=== PATIENT | male | born 2000 | race Caucasian/White ===

== ENCOUNTER 2020-02-08 21:59 | Emergency (ER) | payer BC, SELFPAY ==
[2020-02-08 22:09] VITALS: BP 154/91; PULSE 100; RESP 15; TEMP 36.7; O2SAT 94; BMI 44.9
[2020-02-08 22:33] VITALS: BP 143/82; PULSE 105; RESP 18; O2SAT 96
--- NOTE | 2020-02-08 22:34 | HMH.EDURI ---
ED Disposition Clinical Impression: Diarrhea Qualifiers: Diarrhea type: unspecified type Qualified Code(s): R19.7 - Diarrhea, unspecified Disposition: Home, Self-Care Condition on Discharge: Good Instructions: DI for Acute Bronchitis, DI for Diarrhea and Traveler's Diarrhea -- Adult Additional Instructions: call pcp for follow up Referrals: Provider,Referral, [Primary Care Provider] - - Critical Care Critical Care Time: No Attestation: On 02/08/20, the high probability of a clinically significant, sudden or life threatening deterioration of the following system(s) required my full and direct attention, intervention and personal management. The time I documented below is in addition to time spent performing reported procedures but includes the following listed in this critical care notation. Medical Decision Making - Medical Records Medical records reviewed: Yes: I reviewed the patient's medical records. - Jeremy Inquiry Pt receiving controlled substance: No Vital Signs: 02/08/20 22:09 02/08/20 22:33 Temperature 98.0 F Temperature Source Oral Pulse Rate [Right Brachial] 100 H 105 H Respiratory Rate 15 18 Blood Pressure [Right Arm] 154/91 H 143/82 H Blood Pressure Mean [Right Arm] 112 102 Blood Pressure Source [Right Arm] Automatic Cuff Blood Pressure Position [Right Arm] Sitting 02 Sat by Pulse Oximetry 94 L 96 Oxygen Delivery Method Room Air Room Air Orders (Tests/Meds): ORDERS Category Date Time Status SARS-CoV-2, GILBERTO Stat Lab 02/08/20 22:25 Received URI/Sore Throat HPI - General Chief Complaint: Upper Respiratory Infection Stated Complaint: Vomiting and diarrhea Time Seen by Provider: 02/08/20 22:15 Mode of Arrival: Ambulatory Source of Information: Patient, Medical Record Limitations: No Limitations Description of Symptoms (Recalled from ER Triage Doc. by RN): PATIENT REPORTS HE WANTS TO BE TESTED FOR COVID-19. PATIENT REPORTS HE HAD NO SYMPTOMS JUST WANTED TO BE ON HE SAFE SIDE BECAUSE HE HAS A 4 MONTH OLD AT HOME AND HIS MOM WANTED HIM TO. - History of Present Illness HPI Narrative: pt wants covid test and unclear as to whether he has any sx or exposure - gave conflicting hx to rn and myself - pt reported that had occ diarrhea over the last few days - no cough or resp sx - MD Complaint: other (possible diarrhea ) Onset (ago): day(s) Duration: intermittent Severity: mild Able to tolerate fluids by mouth: Yes Context: other (no known direct contacts ) Associated symptoms: denies other symptoms Treatments prior to arrival: none - Related Data Previous Rx's Medication Instructions Recorded Ibuprofen [Ibuprofen 600mg 600 mg PO Q6HP PRN #30 tab 07/26/19 Tablet] Allergies Allergy/AdvReac Type Severity Reaction Status Date / Time No Known Allergies Allergy Verified 02/08/20 22:33 [facility] History - Hepatitis A Screen Drug use history?: No High risk sexual behaviors?: No History of sexually transmitted infection?: No Currently employed?: No Childcare worker?: No Do you have indoor plumbing?: Yes Do you have electricity?: Yes Attestation statement:: This patient has been screened for Hepatitis A risk factors. I have reviewed the patient's past medical history: Yes Medical History: Denies:: Diabetes Mellitus Type 1, Diabetes Mellitus Type 2 - Social History Smoking Status: Current every day smoker Tobacco Type: cigarettes # Packs/Day (cigarettes): 1 Alcohol Intake: never Occupational Status: unemployed ROS Obtained: Yes All systems reviewed & no additional complaints - Constitutional Constitutional: Denies fever(s) - Eyes Eyes: Denies change in vision - ENT Ears, Nose, Mouth, and Throat: Denies sore throat - Cardiovascular Cardiovascular: Denies chest pain - Respiratory Respiratory: No cough - Gastrointestinal Gastrointestingal: Reports: as per HPI, diarrhea. Denies: abdominal pain, vomiting - Genitourinary Male Genito
--- NOTE | 2020-02-08 23:01 | PC.NURSE ---
DR. GANN WENT IN TO ASSESS PATIENT. DURING THE ASSESSMENT, PATIENT ASKED TO BE TESTED FOR COVID-19 EVEN THOUGH HE HAD NO DIRECT CONTACT OR SYMPTOMS. MD AGREED TO DO THE SEND OUT SWAB AND TOLD PATIENT HE WOULD HAVE TO SELF QUARANTINE. PATIENT THEN ASKED MD FOR A WORK NOTE. EXPLAINED TO PT THAT WE DO NOT HAVE PAPERWORK HERE IS THE ED ABOUT HIS COVID STATUS OR WORK RESTRICTIONS FOR QUARANTINING. AT THIS TIME PT STATED TO MD HE WAS LEAVING AND THAT EVERYTIME I'VE SEEN YOU, YOU ARE RUDE TO ME HE TOOK OFF HIS BP CUFF AND 02 MONITOR. PATIENT ALSO STATED THAT WHEN HE WAS HERE FOR A BROKEN FOOT THAT HE WAS TREATED LIKE A DRUG ADDICT HE WAS WALKING OUT THE DOOR.
[2020-02-08 23:22] VITALS: BP 140/88; PULSE 96; RESP 16; TEMP 36.7; O2SAT 96
== END 2020-02-08 23:30 | disposition home or self-care (01) ==
PROVIDERS: Emergency Provider Emergency Medicine
DX: R19.7 Diarrhea, unspecified (principal); R11.10 Vomiting, unspecified; Z20.828 Contact with and (suspected) exposure to other viral communicable diseases; F17.210 Nicotine dependence, cigarettes, uncomplicated
CPT/HCPCS: 99282; U0004

== ENCOUNTER 2020-04-11 12:17 | Emergency (ER) | payer BC, SELFPAY ==
[2020-04-11 12:18] VITALS: BP 190/119; PULSE 97; RESP 19; TEMP 36.5; O2SAT 99; BMI 48.7
--- NOTE | 2020-04-11 12:30 | XR_ITS ---
PROCEDURE: XR SCAPULA LT CLINICAL INDICATION: pain COMPARISON: No exams were available for comparison FINDINGS: No fracture or dislocation. No lytic or blastic change. There is normal mineralization. The joint spaces are well-preserved. No significant degenerative/arthritic changes. No erosive changes evident. Other findings:None. IMPRESSION: No acute findings. Dictated by: Bill Nguyễn MD 04/11/2020 13:31 Bill Nguyễn MD in [place] 04/11/2020 13:31
--- NOTE | 2020-04-11 12:30 | XR_ITS ---
PROCEDURE: XR SHOULDER LT MIN 2V CLINICAL INDICATION: pain COMPARISON: CR XR SCAPULA LT from 04/11/2020 FINDINGS: No fracture or dislocation. No lytic or blastic change. There is normal mineralization. The joint spaces are well-preserved. No significant degenerative/arthritic changes. No erosive changes evident. Other findings:Decreased attenuation is present in the proximal humerus at the greater tuberosity region. Cannot completely exclude the possibility of a lucent lesion at this area although this could be a normal variant. If pain persists, MRI or CT may provide further evaluation. IMPRESSION: Unremarkable glenohumeral joint and acromioclavicular joint. Nonspecific decreased density of the greater tuberosity of the humerus laterally. This may only be due to prominent trabecular bone however, 1 cannot exclude the possibility of developing lucent lytic lesion at this region. Follow-up is suggested Dictated by: Bill Nguyễn MD 04/11/2020 13:30 Bill Nguyễn MD in [place] 04/11/2020 13:30
[2020-04-11 12:31] VITALS: BP 145/111; PULSE 100; O2SAT 99
--- NOTE | 2020-04-11 13:22 | HMH.EDGENADL ---
ED Disposition Clinical Impression: Periscapular pain Disposition: Home, Self-Care Condition on Discharge: Good Additional Instructions: Sling. Ibuprofen for pain. Follow-up with orthopedics, Dr. Graham, call for appointment. Off work for 2 days. Prescriptions: Ibuprofen [Ibuprofen 800mg Tab] 800 mg PO Q8HP PRN #15 tab PRN Reason: Moderate Pain Transmission Status: Received by [id number] Referrals: PCP,No [Primary Care Provider] - Iris Graham MD [Physician] - Forms: Work/School Release - Critical Care Critical Care Time: No Attestation: On 04/11/20, the high probability of a clinically significant, sudden or life threatening deterioration of the following system(s) required my full and direct attention, intervention and personal management. The time I documented below is in addition to time spent performing reported procedures but includes the following listed in this critical care notation. Medical Decision Making - Jeremy Inquiry Pt receiving controlled substance: No Vital Signs: 04/11/20 12:18 04/11/20 12:31 Temperature 97.7 F Temperature Source Oral Pulse Rate [Left Radial] 97 H 100 H Respiratory Rate 19 Blood Pressure [Right Arm] 190/119 H 145/111 H Blood Pressure Mean [Right Arm] 142 122 Blood Pressure Source [Right Arm] Automatic Cuff Automatic Cuff Blood Pressure Position [Right Arm] Sitting Sitting 02 Sat by Pulse Oximetry 99 99 Oxygen Delivery Method Room Air Room Air Orders (Tests/Meds): ED MEDICATIONS Discontinued Medications Generic Name Dose Route Start Last Admin Trade Name Freq PRN Reason Stop Dose Admin Ketorolac Tromethamine 60 mg 04/11/20 13:41 04/11/20 13:47 Toradol 60mg/2ml Vial IM 04/11/20 13:42 60 mg ONCE ONE Administration - Radiology Data #1 Image(s): Shoulder, Other (scapula) Image Reviewed: Yes I have reviewed radiologist's interpretation PROCEDURE: XR SHOULDER LT MIN 2V CLINICAL INDICATION: pain COMPARISON: CR XR SCAPULA LT from 04/11/2020 FINDINGS: No fracture or dislocation. No lytic or blastic change. There is normal mineralization. The joint spaces are well-preserved. No significant degenerative/arthritic changes. No erosive changes evident. Other findings:Decreased attenuation is present in the proximal humerus at the greater tuberosity region. Cannot completely exclude the possibility of a lucent lesion at this area although this could be a normal variant. If pain persists, MRI or CT may provide further evaluation. IMPRESSION: Unremarkable glenohumeral joint and acromioclavicular joint. Nonspecific decreased density of the greater tuberosity of the humerus laterally. This may only be due to prominent trabecular bone however, 1 cannot exclude the possibility of developing lucent lytic lesion at this region. Follow-up is suggested Dictated by: Bill Nguyễn MD 04/11/2020 13:30 Bill Nguyễn MD in [place] 04/11/2020 13:30 PROCEDURE: XR SCAPULA LT CLINICAL INDICATION: pain COMPARISON: No exams were available for comparison FINDINGS: No fracture or dislocation. No lytic or blastic change. There is normal mineralization. The joint spaces are well-preserved. No significant degenerative/arthritic changes. No erosive changes evident. Other findings:None. IMPRESSION: No acute findings. Dictated by: Bill Nguyễn MD 04/11/2020 13:31 Bill Nguyễn MD in [place] 04/11/2020 13:31 Medical Decision Narrative: Discussed radiologist x-ray reading, possible lucent area in head of humerus. I do not feel this is related to his complaint today, but advised to follow-up with orthopedics for further evaluation. General Adult HPI - General Chief complaint: PAIN Stated complaint: L shoulder blade pain Time Seen by Provider: 04/11/20 13:25 Mode of Arrival: Ambulatory Limitations: No Limitations Description of Symptoms (Recalled from ER Triage Doc. by RN): c/o l
[2020-04-11 14:07] VITALS: BP 127/82; PULSE 91; O2SAT 98
[2020-04-11 14:26] VITALS: BP 127/87; PULSE 97; RESP 18; TEMP 36.6; O2SAT 100
== END 2020-04-11 14:27 | disposition home or self-care (01) ==
PROVIDERS: Emergency Provider Emergency Medicine
DX: M89.8X1 Other specified disorders of bone, shoulder (principal); M25.512 Pain in left shoulder; F17.210 Nicotine dependence, cigarettes, uncomplicated
CPT/HCPCS: 73010; 73030; 96372; 99282; 99283

== ENCOUNTER 2020-09-10 07:31 | Emergency (ER) | payer BC, SELFPAY ==
[2020-09-10 07:33] VITALS: BP 188/98; PULSE 87; RESP 20; TEMP 37.1; O2SAT 95; BMI 48.7
--- NOTE | 2020-09-10 08:17 | HMH.EDEYEP ---
ED Disposition Clinical Impression: Irritation of eye Disposition: Home, Self-Care Condition on Discharge: Good Instructions: DI for Eye Pain Additional Instructions: Follow-up with [facility] in 1 to 2 days for reevaluation. Return to the emergency department for any acute new concerns. Prescriptions: Erythromycin Base [Erythromycin 1gm opth ointment] 1 gm OS QID 5 Days oint...g. Prescription Printed - Critical Care Critical Care Time: No Attestation: On 09/10/20, the high probability of a clinically significant, sudden or life threatening deterioration of the following system(s) required my full and direct attention, intervention and personal management. The time I documented below is in addition to time spent performing reported procedures but includes the following listed in this critical care notation. Medical Decision Making - Medical Records Medical records reviewed: Yes: I reviewed the patient's medical records. - Jeremy Inquiry Pt receiving controlled substance: No Vital Signs: 09/10/20 07:33 Temperature 98.7 F Temperature Source Oral Pulse Rate [Left Radial] 87 Respiratory Rate 20 Blood Pressure [Right Arm] 188/98 H Blood Pressure Mean [Right Arm] 128 Blood Pressure Source [Right Arm] Automatic Cuff Blood Pressure Position [Right Arm] Sitting 02 Sat by Pulse Oximetry 95 Oxygen Delivery Method Room Air Medical Decision Narrative: Patient denies any injury to the eye or chance of foreign body in the eye. Went to bed well last night and woke up with his symptoms this morning. He has had recent exposure to someone with conjunctivitis. There are no signs of purulent bacterial infection at this time. Will cover empirically with with erythromycin. He does not wear contacts. Fluorescein stain does not show any signs of corneal abrasion, ulceration or foreign body. advised follow-up with [facility] within the next 1 to 2 days for reevaluation. Eye Problem HPI - General Chief complaint: Eye Problems Stated complaint: swollen eye, irriated Time Seen by Provider: 09/10/20 08:17 Mode of Arrival: Ambulatory Source of Information: Patient Limitations: No Limitations Description of Symptoms (Recalled from ER Triage Doc. by RN): c/o left eye pain with blurry vision and swelling. States that he does grinding at work. Right eye 20/20, left eye 20/40. - History of Present Illness HPI Narrative: This is a 19-year-old male with no significant past medical history who presents to the emergency department for pain along the lateral edge of his left eye. He states it feels scratchy and feels like his vision is blurry. He has been exposed recently to someone with pinkeye and is concerned about this. He denies any injury to the eye. He went to bed well last night and woke up this morning with the symptoms. No drainage from the eye. No fever. - Related Data Previous Rx's Medication Instructions Recorded Erythromycin Base [Erythromycin 1 gm OS QID 5 Days oint...g. 09/10/20 1gm opth ointment] Allergies Allergy/AdvReac Type Severity Reaction Status Date / Time No Known Allergies Allergy Verified 04/19/20 15:52 [facility] History - Hepatitis A Screen Drug use history?: No High risk sexual behaviors?: No History of sexually transmitted infection?: No Currently employed?: No Childcare worker?: No Do you have indoor plumbing?: Yes Do you have electricity?: Yes Attestation statement:: This patient has been screened for Hepatitis A risk factors. I have reviewed the patient's past medical history: Yes Medical History: Denies:: Diabetes Mellitus Type 1, Diabetes Mellitus Type 2 Fractures: Yes - Social History Smoking Status: Current every day smoker Tobacco Type: cigarettes # Packs/Day (cigarettes): 1 Alcohol Intake: never Occupational Status: employed ROS Obtained: Yes All systems reviewed & no additional complaints Physical Exam - General Genera
[2020-09-10 08:51] VITALS: BP 154/73; PULSE 93; RESP 18; TEMP 37.1; O2SAT 100
== END 2020-09-10 08:53 | disposition home or self-care (01) ==
PROVIDERS: Emergency Provider Emergency Medicine; PCP Orthopaedic Surgery
DX: H57.89 Other specified disorders of eye and adnexa (principal); Y99.0 Civilian activity done for income or pay; F17.210 Nicotine dependence, cigarettes, uncomplicated
CPT/HCPCS: 99281

== ENCOUNTER 2021-01-21 12:08 | Emergency (ER) | payer BC, SELFPAY ==
[2021-01-21 12:10] VITALS: BP 151/97; PULSE 103; RESP 24; TEMP 36.7; O2SAT 96; BMI 49.2
--- NOTE | 2021-01-21 12:48 | HMH.EDUTC ---
[facility] [place] Disposition Clinical Impression: Viral syndrome, Exposure to COVID-19 virus, Bronchitis Disposition: Home, Self-Care Condition on Discharge: Good Instructions: DI for COVID-19 (Suspected or Confirmed ), Preventing the Spread of Coronavirus Discharge Instructions Additional Instructions: Drink plenty of fluids. Take tylenol or ibuprofen for pain or fever. Take the medications as directed. Follow up with your regular doctor. GO TO THE ER FOR ANY WORSENING SYMPTOMS Prescriptions: Brompheniramine/Pseudoephed/Dm [Bromfed Dm Cough Syrup] 5 ml PO Q6HP PRN #240 syrup PRN Reason: Cough Transmission Status: Received by [id number] predniSONE [Prednisone 20mg Tab] 20 mg PO BID 4 Days #8 tab Transmission Status: Received by [id number] Azithromycin [Z-Dar 250mg Tab*] 250 mg PO UD DOSE PK #6 tab Transmission Status: Received by [id number] Referrals: Provider,Referral, MD [Primary Care Provider] - Forms: Work/School Release Time of Disposition: 12:54 Medical Decision Making - Medical Records Medical records reviewed: No: I reviewed the patient's medical records. - Jeremy Inquiry Pt receiving controlled substance: No Vital Signs: 01/21/21 12:10 01/21/21 12:57 Temperature 98.1 F 98.1 F Temperature Source Oral Pulse Rate 103 H Pulse Rate [Right Brachial] 103 H Respiratory Rate 24 24 Blood Pressure 151/97 H Blood Pressure [Right Arm] 151/97 H Blood Pressure Mean [Right Arm] 115 Blood Pressure Source [Right Arm] Automatic Cuff Blood Pressure Position [Right Arm] Sitting 02 Sat by Pulse Oximetry 96 Oxygen Delivery Method Room Air [facility] [place] HPI - General Stated complaint: covid test Time Seen by Provider: 01/21/21 12:48 Mode of Arrival: Ambulatory Source of Information: Patient Limitations: No Limitations Description of Symptoms (Recalled from Triage Doc. by RN): PATIENT C/O SORE THROAT, COUGH, CONGESTION, AND LOSS OF TASTE AND SMELL. REPORTS THAT HIS GIRLFRIEND AND SON TESTED POSITIVE FOR COVID YESTERDAY HEENT Symptoms (Recalled from RN notes): Yes Resp Symptoms (Recalled from RN notes): Yes Skin Symptoms (Recalled from RN notes): No MS Symptoms (Recalled from RN notes): No Functional Status (Recalled from RN notes): WNL - History of Present Illness Provider Complaint: He states that he has been feeling bad since yesterday. His girlfriend and son both tested positive for covid yesterday. He denies any shortness of breath - Related Data Previous Rx's Medication Instructions Recorded Azithromycin [Z-Dar 250mg Tab*] 250 mg PO UD DOSE PK #6 tab 01/21/21 Brompheniramine/Pseudoephed/Dm 5 ml PO Q6HP PRN #240 syrup 01/21/21 [Bromfed Dm Cough Syrup] predniSONE [Prednisone 20mg 20 mg PO BID 4 Days #8 tab 01/21/21 Tab] Allergies Allergy/AdvReac Type Severity Reaction Status Date / Time No Known Allergies Allergy Verified 04/19/20 15:52 - Worker's Comp Is this a Worker's Comp case?: No [facility] History - Hepatitis A Screen Drug use history?: No High risk sexual behaviors?: No History of sexually transmitted infection?: No Currently employed?: No Childcare worker?: No Do you have indoor plumbing?: Yes Do you have electricity?: Yes Attestation statement:: This patient has been screened for Hepatitis A risk factors. I have reviewed the patient's past medical history: Yes Medical History: Denies:: Diabetes Mellitus Type 1, Diabetes Mellitus Type 2 Fractures: Yes - Social History Smoking Status: Current every day smoker Tobacco Type: cigarettes # Packs/Day (cigarettes): 1 Alcohol Intake: never Occupational Status: other ROS Obtained: Yes All systems reviewed & no additional complaints - Constitutional Constitutional: Reports system reviewed and no additional complaints, except as docu - Eyes Eyes: Reports system reviewed and no additional complaints, except as docu - ENT Ears, Nose, Mouth, and Throat: Reports system r
[2021-01-21 12:57] VITALS: BP 151/97; PULSE 103; RESP 24; TEMP 36.7; O2SAT 96
== END 2021-01-21 13:02 | disposition home or self-care (01) ==
PROVIDERS: Emergency Provider Nurse Practitioner Family
DX: B34.9 Viral infection, unspecified (principal); Z20.822 Contact with and (suspected) exposure to COVID-19; J20.9 Acute bronchitis, unspecified
CPT/HCPCS: 99202; G0463; U0003

== ENCOUNTER 2021-01-23 12:46 | Emergency (ER) | payer BC, SELFPAY ==
[2021-01-23 13:00] VITALS: BP 121/74; PULSE 104; RESP 18; TEMP 36.8; O2SAT 95; BMI 50.1
--- NOTE | 2021-01-23 13:16 | HMH.EDUTC ---
[facility] [place] Disposition Clinical Impression: Encounter for laboratory testing for COVID-19 virus Disposition: Home, Self-Care Condition on Discharge: Good Instructions: DI for COVID-19 (Suspected or Confirmed ), Coronavirus Disease 2019, Preventing the Spread of Coronavirus Discharge Instructions Additional Instructions: You were tested for today for COVID19 your test result should be back in the next 24-48 hours, you may call to the [facility] to see if your test results are back in the next 48 hours [phone] [facility] hours are 9am-9pm You was given a handout with instructions for Self Quarantine and Self isolation for while you wait on test results and what to do if they are positive If you are positive the Health Dept will be contacting you also Referrals: Provider,Referral, MD [Primary Care Provider] - As needed Time of Disposition: 13:20 Medical Decision Making - Jeremy Inquiry Pt receiving controlled substance: No Jeremy was queried for this patient: No Vital Signs: 01/23/21 13:00 Temperature 98.2 F Temperature Source Oral Pulse Rate [Right] 104 H Respiratory Rate 18 Blood Pressure [Right Arm] 121/74 Blood Pressure Mean [Right Arm] 89 02 Sat by Pulse Oximetry 95 [facility] [place] HPI - General Stated complaint: covid test Time Seen by Provider: 01/23/21 13:16 Mode of Arrival: Ambulatory Source of Information: Patient Limitations: No Limitations Description of Symptoms (Recalled from Triage Doc. by RN): direct exposure to martinez virus by girlfriend. not covid 19. pt c/o loss of taste and smell, n/v, and cough HEENT Symptoms (Recalled from RN notes): Yes (loss of taste and smell) Resp Symptoms (Recalled from RN notes): Yes (nonproductive cough) Skin Symptoms (Recalled from RN notes): No MS Symptoms (Recalled from RN notes): No Functional Status (Recalled from RN notes): na - History of Present Illness Provider Complaint: Patient states that he was around his girlfriend and son that was positive for one of the coronavirus's not for COVID19 but he has been unable to taste or smell anything and was tested for COVID a couple days ago but his work needs him to get tested again - Related Data Previous Rx's Medication Instructions Recorded Azithromycin [Z-Dar 250mg Tab*] 250 mg PO UD DOSE PK #6 tab 01/21/21 Brompheniramine/Pseudoephed/Dm 5 ml PO Q6HP PRN #240 syrup 01/21/21 [Bromfed Dm Cough Syrup] predniSONE [Prednisone 20mg 20 mg PO BID 4 Days #8 tab 01/21/21 Tab] Allergies Allergy/AdvReac Type Severity Reaction Status Date / Time No Known Allergies Allergy Verified 04/19/20 15:52 - Worker's Comp Is this a Worker's Comp case?: No [facility] History - Hepatitis A Screen Drug use history?: No High risk sexual behaviors?: No History of sexually transmitted infection?: No Currently employed?: No Childcare worker?: No Do you have indoor plumbing?: Yes Do you have electricity?: Yes Attestation statement:: This patient has been screened for Hepatitis A risk factors. I have reviewed the patient's past medical history: Yes Medical History: Denies:: Diabetes Mellitus Type 1, Diabetes Mellitus Type 2 Fractures: Yes - Social History Smoking Status: Current every day smoker Tobacco Type: cigarettes # Packs/Day (cigarettes): 1 Alcohol Intake: never Occupational Status: other ROS Obtained: Yes All systems reviewed & no additional complaints, Yes Systems reviewed as appropriate & no additional complaints - Constitutional Constitutional: Reports system reviewed and no additional complaints, except as docu, Denies body ache, Denies chills, Reports fever(s), Reports headache(s) - Eyes Eyes: Reports system reviewed and no additional complaints, except as docu - ENT Ears, Nose, Mouth, and Throat: Reports system reviewed and no additional complaints, except as docu, Reports nasal congestion, Reports nasal discharge, Reports sore throat - Cardiovascular Cardiovascular: Reports system reviewed and no additional
[2021-01-23 14:03] LABS: Coronavirus 19, PCR Not Detected (NotDetected); Influenza A, PCR Not Detected (NotDetected); Influenza B, PCR Not Detected (NotDetected)
[2021-01-23 14:05] VITALS: BP 121/74; PULSE 99; RESP 18; TEMP 36.8
== END 2021-01-23 14:05 | disposition home or self-care (01) ==
PROVIDERS: Emergency Provider Nurse Practitioner
DX: Z20.822 Contact with and (suspected) exposure to COVID-19 (principal); R11.2 Nausea with vomiting, unspecified; R43.9 Unspecified disturbances of smell and taste; F17.210 Nicotine dependence, cigarettes, uncomplicated
CPT/HCPCS: 99202; G0463; U0003